=== PATIENT | male | born 2000 | race Caucasian/White ===

== ENCOUNTER 2024-10-09 13:55 | Emergency (ER) | payer MEDICAID, SELFPAY ==
[2024-10-09 13:56] VITALS: BP 151/80; PULSE 115; PULSE 123; RESP 19; RESP 22; TEMP 37.2; O2SAT 94; O2SAT 97; BMI 56.5
[2024-10-09] MEDS: LIDOCAINE HCL 1% 20 ML VIAL INFL (15:01)
[2024-10-09] MEDS: DIPHTH,PERTUSS(ACELL),TET VAC 0.5 ML SYR- ADULT IMi (15:02)
--- NOTE | 2024-10-09 15:26 | XR_ITS ---
Examination: Hand, left 3 views Technique: Hand AP, oblique, lateral 3 views Date and time of exam: October 09 2024, 1527 hours INDICATIONS: Laceration to the hand today with fourth digit pain FINDINGS: No fracture. No dislocation. No foreign body IMPRESSION: Negative for opaque foreign body
--- NOTE | 2024-10-09 15:30 | EDNOTE_ITS ---
<Statement entered by Yennifer Ratliff MD - 10/18/24 19:14> As co-signing physician, I was present and available for consult prn. I concur with the plan and care as documented by the midlevel provider. ED Wound/Laceration-RME/HPI General Chief Complaint: Wound/Laceration Stated Complaint: LACERATION TO HAND Time Seen by Provider: 10/09/24 14:20 Source: patient Arrival date/time: 10/09/24 13:55 24-year-old male with no known medical history presents to the emergency room with a chief complaint of a laceration to his left hand third digit after cutting it with a hedge trimmerwhile working on his lawn 1 hour ago. Mode of arrival: ambulatory Limitations: no limitations Related Data Previous Rx's ?Medication ?Instructions ?Recorded acetaminophen 300 mg-codeine 30 mg 1 tab PO BID #14 ta bs 12/31/17 tablet (Tylenol-Codeine #3) cephalexin 500 mg capsule 500 mg PO BID 7 days #14 cap s 10/09/24 Allergies Allergy/AdvReac Type Severity Reaction Status Date / Time No Known Allergies Allergy Verified 12/30/17 22:41 Review of Systems Review of Systems Systems Reviewed: All systems reviewed, normal except as documented Constitutional Constitutional: Reports system reviewed and no additional complaints, except as documented, Denies fatigue, Denies fever(s), Denies headache(s) and Denies weakness Eyes Eyes: Reports system reviewed and no additional complaints, except as documented, Denies blurry vision and Denies change in vision ENT Ears, Nose, Mouth, and Throat: Reports system reviewed and no additional complaints, except as documented, Denies otalgia, Denies headache(s), Denies nasal congestion, Denies throat swelling and Denies vertigo Cardiovascular Cardiovascular: Reports system reviewed and no additional complaints, except as documented, Denies chest pain, Denies dyspnea and Denies dyspnea on exertion Respiratory Respiratory: Reports system reviewed and no additional complaints, except as documented, Denies chest congestion, Denies cough, Denies dyspnea, Denies dyspnea on exertion and Denies wheezing Gastrointestinal Gastrointestinal: Reports system reviewed and no additional complaints, except as documented, Denies abdominal pain, Denies cramping, Denies nausea and Denies vomiting Genitourinary Genitourinary: Reports system reviewed and no additional complaints, except as documented, Denies dysuria and Denies hematuria Musculoskeletal Musculoskeletal: Reports system reviewed and no additional complaints, except as documented and Denies back pain Integumentary/Breasts Skin/Breast: Reports system reviewed and no additional complaints, except as documented and Reports wounds Neurologic Neurologic: Reports system reviewed and no additional complaints, except as documented, Denies confusion, Denies headache(s), Denies lack of coordination, Denies vertigo and Denies weakness Psychiatric Psychiatric: Reports system reviewed and no additional complaints, except as documented, Denies anxiety, Denies confusion, Denies depression, Denies paranoia, Denies suicidal ideation and Denies tactile hallucinations Endocrine Endocrine: Reports system reviewed and no additional complaints, except as documented and Denies fatigue Hematologic/Lymphatic Hematologic/Lymphatic: Reports system reviewed and no additional complaints, except as documented and Denies lymphadenopathy Allergic/Immunologic Allergic/Immunologic: Reports system reviewed and no additional complaints, except as documented, Denies throat swelling, Denies urticaria and Denies wheezing ED Exam General Limitations: Present no limitations General appearance: Present alert and in no apparent distress Head Head exam: Present atraumatic Eye Eye exam: Present normal appearance, PERRL and EOMI ENT ENT exam: Present normal exam, normal oropharynx and mucous membranes moist Neck Neck exam: Present normal inspection, full ROM and trachea midline Chest Chest inspection: Present normal inspection and symmetric chest wall rise Respiratory Respiratory exam: Present normal lung sounds bilaterally Cardiovascular Cardiovascular exam: Present regular rate, normal rhythm and normal heart sounds Abdominal Exam Abdominal exam: Present soft and normal bowel sounds Extremities Exam Extremities exam: Present normal inspection and full ROM Expanded Upper Extremity Exam Shoulder exam: Present normal inspection Arm exam: Present normal inspection Elbow exam: Present normal inspection Forearm/Wrist exam: Present normal inspection Hand exam: Present full ROM, tenderness and laceration Hand L/R front image: 2 1. laceration Back Exam Back exam: Present normal inspection and full ROM Neurological Exam Neurological exam: Present alert, oriented X3 and CN II-XII intact Psychiatric Psychiatric exam: Present normal affect and normal mood Skin Skin exam: Present warm, dry, intact and normal color Course Quality Measures none Orders Category Date Time Status Set Up Suture Tray STAT Care 10/09/24 14:20 Active Wound Care NOW Care 10/09/24 14:20 Active XR hand comp LT min 3V Stat Exams 10/09/24 15:26 Completed Lidocaine 1% 20 ml [Xylocaine 1% 20 ML] Med 10/09/24 14:20 Discontinued 20 ml INFL X1 ONE TET,DIP/PERT AC (Adult)-Tdap [Boostrix Adult (Tdap) Med 10/09/24 14:20 Discontinued Vacc] 0.5 ml IMI .ONCE ONE Vital Signs Vital signs: Vital Signs Temperature 98.9 F 10/09/24 13:56 Pulse Rate 123 H 10/09/24 13:56 Respiratory Rate 19 10/09/24 13:56 Blood Pressure 151/80 H 10/09/24 13:56 Pulse Oximetry (%) 94 L 10/09/24 13:56 Oxygen Delivery Method Room Air 10/09/24 13:56 PROCEDURES: Laceration Laceration 1: Site: hand Side (If applicable): left Size (cm): 3 Description: linear, flap and irregular Local Anesthetic: lidocaine 1% Amount of anesthesia used (mL): 5 Pre-repair: irrigated extensively Skin layer closed with: nylon Suture size (cm): 4-0 Number of sutures: 7 Technique: simple, interrupted Wound / Laceration MDM Narrative MDM Narrative:: 24-year-old male with no known medical history presents to the emergency room with a chief complaint of a laceration to his left hand third digit after cutting it with a hedge trimmerwhile working on his lawn 1 hour ago. Patient is hemodynamically stable and in no apparent distress. X-rays were completed and were negative for any acute fracture or foreign bodies. The laceration occured 1 hour ago The mechanism of injury was using a vehicle trimmer Sensation is intact. There is full ROM. There is no exposed tendons. No foreign bodies. Lidocaine 1% was used for anesthesia. The wound was irrigated extensively with normal saline. 7 sutures were placed. A dressing was placed. There were no complications. Patient was educated to keep the area clean and dry for 24 hours, then clean daily with soap and water. Patient was educated to return for any signs of infection including swelling pain redness pus or fever and to make an appointment with primary care provider in 48 hours. Patient was educated to follow up with primary or return to emergency room for suture removal in the next 7-10 days. Patient data External records reviewed:: [facility] previous records Clinical information provided by:: patient Social determinants that could affect healthcare access:: none Patient has the following chronic illnesses:: No chronic illness How is presenting disease/condition affected by chronic disease/condition?: no chronic disease Evaluation data The following diagnostics were reviewed and interpreted by me:: lab results and radiology exam(s) Lab and/or radiology exams considered but not ordered:: Labs and radiology exams considered and ordered Interpretation Summary: X-ray of the left hand-FINDINGS: No fracture. No dislocation. No foreign body IMPRESSION: Negative for opaque foreign body Medications / Prescriptions Medications or Prescriptions considered but not ordered:: Medication given Medication administrations:: Medication Administration History Discontinued Medications Diphtheria/Tetanus/Acell Pertussis (Diphth,Pertuss(Acell),Tet Vac 0.5 Ml Syr- Adult) 0.5 ml IMi .ONCE ONE Stop: 10/09/24 14:21 Last Admin: 10/09/24 15:02 Dose: 0.5 ml Documented By: HILDA Lidocaine HCl (Lidocaine Hcl 1% 20 Ml Vial) 20 ml INFL X1 ONE Stop: 10/09/24 14:21 Last Admin: 10/09/24 15:01 Dose: 20 ml Documented By: HILDA Comments: MEDICATION GIVEN TO [employer]. Medication given Consultations Consultation(s) initiated? (list below): No Diagnosis Wound Differential Diagnosis: laceration, abscess, abrasion and avulsion of skin Most likely diagnosis given after review of the tests above:: Laceration Admission Indicated Admission indicated?: not indicated Admission Request Was there a request for admission?: No Disposition Plan Disposition Plan: Discharge Discharge Attestation Discharge Attestation: The patient and all family members were given an opportunity to ask questions and understood the discharge instructions. Discharge instructions specifically effects, indications for sooner follow up or return to the emergency department, and the expected course of current diagnosis. Patient condition: Stable Discharge Plan Plan Patient Disposition: HOME (Self Care) Prescriptions/Referrals Prescriptions/Med Rec: New cephalexin 500 mg capsule 500 mg PO BID 7 Days Qty: 14 0RF No Action acetaminophen-codeine [Tylenol-Codeine #3] 300-30 mg tablet 1 tab PO BID Qty: 14 0RF Problem List Clinical Impression: Laceration Patient/Caregiver Discharge Instructions Additional Instructions: Please follow-up with your primary care provider in the next 24 to 48 hours X-rays of your hand were completed and were negative for any acute fracture. Your laceration was closed and approximated Please keep it clean for the next 24 hours afterwards you can clean it with soap and water You can return in 7 to 10 days for suture removal For any evidence of worsening signs or symptoms return to the emergency room immediately Print Language: Vietnamese Stand Alone Forms: [employer]ima Award Info., Patient Portal Info Letter PA/[employer] Supervising Physician PA/[employer] Supervising Physician: Dr. RATLIFF
== END 2024-10-09 16:27 | disposition home or self-care (01) ==
LOC: SERX 16:03
PROVIDERS: Emergency Provider Emergency Medicine
DX: S61.213A Laceration without foreign body of left middle finger without damage to nail, initial encounter (principal); W27.8XXA Contact with other nonpowered hand tool, initial encounter; Y93.H2 Activity, gardening and landscaping; Y92.096 Garden or yard of other non-institutional residence as the place of occurrence of the external cause; Z23 Encounter for immunization
CPT/HCPCS: 12002; 73130; 90471; 90715; 99283; J3490

== ENCOUNTER → 2024-12-14 | Outpatient (CLI) | payer MEDICAID, SELFPAY ==
--- NOTE | 2024-12-14 12:00 | XR_ITS ---
Examination: MRI lumbar spine without contrast Date and time of exam: December 14, 2024, 0022 hrs. Indications: Lower back pain radiating down the right leg numbness and paresthesias in the right groin 10 years, history microdiscectomy April 18, 2018 Technique: Multiple MRI axial and sagittal sections lumbar spine. Sagittal T2-weighted images, TR 3500, TE 118 T1 weighted transverse sections, TR 688 T8.5, T2-weighted sagittal sections T1 weighted sagittal sections TR 621, TE 30 T2 axial sections, TR 4, 190, TE 84. Findings: Straightening normal lumbar lordosis Moderate disc narrowing L4-L5, L5-S1 with disc desiccation No lumbar fracture Adequate marrow signal lumbar vertebral bodies L5-S1 6 mm right paracentral subarticular foraminal disc bulge with mild right L5 ganglionic compression L4-L5 6 mm central lumbar disc bulge L3-L4 2 mm right paracentral disc bulge L2-L3 2 mm central lumbar disc bulge L1-L2 no disc protrusion Impression: Diffuse lumbar degenerative disc disease, moderate L4-L5, L5-S1 L5-S1 6 mm right upper central subarticular foraminal disc bulge with mild right L5 ganglionic compression. L4-L5 6 mm central lumbar disc bulge
== END | disposition home or self-care (01) ==
LOC: SMRI 11:39
PROVIDERS: Referring Provider Nurse Practitioner Family; Visit Provider Nurse Practitioner Family
DX: M51.360 Other intervertebral disc degeneration, lumbar region with discogenic back pain only (principal); M51.370 Other intervertebral disc degeneration, lumbosacral region with discogenic back pain only
CPT/HCPCS: 72148